=== PATIENT | female | born 1965 | race Caucasian/White ===

== ENCOUNTER 2020-10-03 14:11 | Emergency (ER) | payer OTHER ==
[~2020-10-03] VITALS: Ht 157.5 cm; Wt 83.9 kg
[~2020-10-03 14:11] MED LIST: CIPROFLOXACIN500 M1 PO; CYMBALTA60 MG PO; ESTRACE1 MG PO; FLEXERIL PO; HYOSCYAMINE0.375 M2 SUBLING; KEFLEX500 MG PO; MOBIC7.5 M1 PO; OXYCODONE HCL5 M1 PO; PERCOCET 5-3251 EACH PO; PREMARIN1.25 MG PO; TOPIRAMATE 100100 MG PO; TRAMADOL 50 MG50 MG PO; ZOLOFT25 MG
[2020-10-03] MEDS ORDERED: KLONOPIN1 MG PO (14:34)
[2020-10-03] MEDS ORDERED: DULOXETINE HCL60 MG PO (14:35)
[2020-10-03] MEDS ORDERED: ACCUNEB SO1.25 MG/1 INH (14:35)
[2020-10-03] MEDS ORDERED: PROAIR HFA8.5 GM INH (14:35)
[2020-10-03] MEDS ORDERED: DICYCLOMINE HCL20 MG PO (14:35)
[2020-10-03] MEDS ORDERED: BOTOX100 UNIT IM (14:36)
[2020-10-03] MEDS ORDERED: ABILIFY 2 MG2 M1 PO (14:37)
[2020-10-03] MEDS ORDERED: UBRELVY50 MG PO (14:37)
[2020-10-03] MEDS ORDERED: ONDANSETRON ODT8 MG PO (14:37)
[2020-10-03 14:49] LABS: URINE BILIRUBIN NEGATIVE (Negative); URINE BLOOD NEGATIVE (Negative); URINE CLARITY CLEAR; URINE COLOR YELLOW; URINE GLUCOSE-RANDOM NEGATIVE (Negative); URINE KETONES NEGATIVE (Negative); URINE LEUKOCYTES-REFLEX NEGATIVE (Negative); URINE NITRITE-REFLEX NEGATIVE (Negative); URINE PROTEIN NEGATIVE (Negative); URINE SPECIFIC GRAVITY >= 1.030 (1.005-1.030); URINE UROBILINOGEN 0.2 E.U./dl (0.2-1.0)
[2020-10-03 15:14] LABS: ABSOLUTE BASOPHILS 0.1 thou/uL (0.0-0.2); ABSOLUTE MONOCYTES 0.7 thou/uL (0.0-1.2); ABSOLUTE NEUTROPHILS 7.1 thou/uL (1.6-8.1); BASOPHILS 0.8 %; EOSINOPHILS 0.3 %; HEMATOCRIT 41.6 % (37.0-47.0); HEMOGLOBIN 13.7 gm/dL (12.0-15.0); LYMPHOCYTES 19.9 %; MCH 29.1 pg (26.0-34.0); MCV 88.1 fL (80.0-100.0); MONOCYTES 7.2 %; MPV 7.3 fl. (7.2-11.1); NUCLEATED RBCS 0 /100WBC; PLATELET COUNT* 323 thou/uL (150-400); POLYS 71.8 %; RBC 4.72 mil/uL (4.20-5.00); RDW-CV 13.5 % (10.5-14.5); WBC 9.8 thou/uL (4.0-11.0)
[2020-10-03 15:22] LABS: CALCIUM 8.8 mg/dL (8.5-10.1); CREATININE 0.7 mg/dL (0.6-1.3)
[2020-10-03 15:26] LABS: ALBUMIN 3.4 g/dL (3.4-5.0); TOTAL BILIRUBIN 0.4 mg/dL (<0.1-1.0); TOTAL PROTEIN 7.6 g/dL (6.4-8.2)
[2020-10-03] MEDS ORDERED: ZANAFLEX4 MG PO (16:49)
[2020-10-03] MEDS ORDERED: NORCO5 PO (16:49)
[2020-10-03] MEDS ORDERED: IBUPROFEN 800800 M1 PO ×2 (16:49→16:50)
[2020-10-03 16:55] VITALS: BP 121/69
== END 2020-10-03 16:56 | disposition home or self-care (01) ==
LOC: M.ERS 14:11
PROVIDERS: Nurse Practitioner Family
DX: R10.31 Right lower quadrant pain (principal); J45.909 Unspecified asthma, uncomplicated; M79.7 Fibromyalgia; Z88.1 Allergy status to other antibiotic agents; Z88.2 Allergy status to sulfonamides; Z88.5 Allergy status to narcotic agent; Z88.8 Allergy status to other drugs, medicaments and biological substances; Z98.890 Other specified postprocedural states; Z90.49 Acquired absence of other specified parts of digestive tract; Z87.442 Personal history of urinary calculi